=== PATIENT | female | born 1965 | race Hispanic/Latino ===

== ENCOUNTER 2023-08-06 21:18 | Emergency (ER) | payer OTHER, SELFPAY ==
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
[2023-08-06 21:19] VITALS: BP 156/89; PULSE 100; RESP 20; O2SAT 99
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
== END 2023-08-07 00:29 | disposition home or self-care (01) ==
PROVIDERS: Emergency Provider Physician Assistant
DX: S13.4XXA Sprain of ligaments of cervical spine, initial encounter (principal); S01.81XA Laceration without foreign body of other part of head, initial encounter; V43.52XA Car driver injured in collision with other type car in traffic accident, initial encounter; Y92.488 Other paved roadways as the place of occurrence of the external cause
CPT/HCPCS: 12001; 70450; 72125; 72131; 99284